=== PATIENT | female | born 1960 | race Caucasian/White ===

== ENCOUNTER 2018-10-21 15:27 | Emergency (ER) | payer BC, SELFPAY ==
--- NOTE | 2018-10-21 15:48 | XR_ITS ---
XR chest 2V HISTORY: Weakness since yesterday morning. HISTORY of asthma. Nonsmoker. ITS.REASON: COUGH ORDERING PHYSICIAN: Sher Gu PATIENT AGE: 58 years Technique: PA and lateral chest COMPARISON: November 2004 CXR. There were 2008 FINDINGS: Compared to previous chest films, there is less less optimal inspiration both the PA and lateral film today. . The diaphragm is down to the anterior sixth rib today. Previously there is hyperexpansion with diaphragm below the anterior seventh rib. Suggestion of bibasilar airspace disease most evident at left lung base. There is additional airspace disease PICC line of markings at medial left lung base and left infrahilar region which in for the most part reflect atelectasis; possible infiltrate associated.. There may be some mild central airway inflammatory changes bilateral lobe lobe are Question subtle infiltrate towards right base, right lower lobe as well Again the less optimal inspiration may contribute this overall appearance and overall bibasilar atelectasis. The franky & mediastinal structures satisfactory. Superior mediastinum unremarkable. Chest wall and T-spine intact. Mild degenerative changes mid T-spine. IMPRESSION:...... Less optimal inspiration crowds markings at bases Suspect mild central airway inflammatory changes particularly at the infrahilar regions bilaterally. . bibasilar airspace disease, most evident towards the left lung base.-Suspect mainly atelectasis but there may be associated infiltrate, particularly suspect at the left lower lobe retrocardiac region. If symptoms progress follow-up suggested. Cardiomegaly with Mild pulmonary vascular engorgement
--- NOTE | 2018-10-21 15:49 | PC.NURSE ---
PT TAKEN TO XRAY IN WHEELCHAIR
[2018-10-21 15:50] VITALS: BP 165/98; PULSE 111; RESP 26; TEMP 38.3; O2SAT 96; BMI 38.6
--- NOTE | 2018-10-21 15:56 | HMH.EDUTC ---
[facility] [place] Impression: Asthma exacerbation Qualifiers: Asthma severity: mild Asthma persistence: intermittent Qualified Code(s): J45.21 - Mild intermittent asthma with (acute) exacerbation Disposition: Home, Self-Care Condition on Discharge: Good Instructions: Sore Throat, Asthma -- Adult, Cough Additional Instructions: Drink plenty of fluids Take tylenol or ibuprofen for pain or fever. Take the antibiotics (cefdinir) and steroids (medrol dose pack) as directed. I prescribed a albuterol inhaler. Keep this around for times when you get sick and have asthma symptoms like you are now. Go to your regular doctor if you are not getting better in 48 hours. GO TO THE ER FOR ANY WORSENING OR LIFE THREATENING SYMPTOMS Prescriptions: Promethazine/Dextromethorphan [Promethazine-Dm Syrup] 5 ml PO Q6HP PRN #240 syrup PRN Reason: Cough Ondansetron [Zofran 4mg ODT] 4 mg PO Q8HP PRN #20 tab.rapdis PRN Reason: Nausea Albuterol Sulfate [Albuterol HFA Inhaler] 1 - 2 puffs IH Q4-6H PRN 30 Days #1 inh PRN Reason: Shortness Of Breath Or Wheezing Cefdinir [Omnicef 300mg Capsule] 300 mg PO BID 10 Days #20 cap methylPREDNISolone [Medrol] 4 mg PO DIRECTED 6 Days #21 tab.ds.pk Referrals: Dereck Short [Primary Care Provider] - Time of Disposition: 18:15 Medical Decision Making - Medical Records Medical records reviewed: No: I reviewed the patient's medical records. - Narciso Inquiry Pt receiving controlled substance: No Narciso was queried for this patient: No Vital Signs: 10/21/18 15:50 10/21/18 16:45 10/21/18 16:55 Temperature 101 F H Temperature Source Oral Pulse Rate 77 79 Pulse Rate [Right Brachial] 111 H Respiratory Rate 26 H Blood Pressure Blood Pressure [Right Arm] 165/98 H Blood Pressure Mean [Right Arm] 120 Blood Pressure Source Blood Pressure Source [Right Arm] Automatic Cuff Blood Pressure Position Blood Pressure Position [Right Arm] Sitting 02 Sat by Pulse Oximetry 96 Oxygen Delivery Method Room Air 10/21/18 17:45 Temperature 99.6 F Temperature Source Oral Pulse Rate 92 H Pulse Rate [Right Brachial] Respiratory Rate 24 Blood Pressure 152/88 H Blood Pressure [Right Arm] Blood Pressure Mean [Right Arm] Blood Pressure Source Automatic Cuff Blood Pressure Source [Right Arm] Blood Pressure Position Sitting Blood Pressure Position [Right Arm] 02 Sat by Pulse Oximetry Oxygen Delivery Method Room Air - Lab Data Lab results reviewed: Yes: I reviewed the patient's lab results. Lab Results 10/21/18 15:49: Influenza Type A Ag Negative, Influenza Type B Ag Negative 10/21/18 17:15: Strep Scn Rapid Clinic Negative Orders (Tests/Meds): ED MEDICATIONS Discontinued Medications Generic Name Dose Route Start Last Admin Trade Name Freq PRN Reason Stop Dose Admin Albuterol/Ipratropium 3 ml 10/21/18 16:35 10/21/18 16:45 Duoneb 3ml Neb IH 10/21/18 16:36 3 ml ONCE ONE Administration Ceftriaxone Sodium 1 gm 10/21/18 16:22 10/21/18 16:33 Rocephin 1gm Vial IM 10/21/18 16:23 1 gm ONCE ONE Administration Protocol Lidocaine HCl 0 ml 10/21/18 16:22 10/21/18 16:33 Lidocaine 1% 10ml Mdv IM 10/21/18 16:23 1 ml ONCE ONE Administration Methylprednisolone Sodium Succinate 125 mg 10/21/18 16:22 10/21/18 16:33 Solu-Medrol 125mg/2ml Vial IM 10/21/18 16:23 125 mg ONCE ONE Administration Ondansetron HCl 4 mg 10/21/18 17:23 10/21/18 17:24 Zofran 4mg Odt SL 10/21/18 17:24 4 mg ONCE ONE Administration ORDERS Category Date Time Status Strep Screen Confirmation Stat Micro 10/21/18 17:15 Received - Radiology Data #1 Image(s): Chest Image Reviewed: Yes I reviewed the patient's radiology image, Yes I reviewed the patient's radiology image w/the ED
--- NOTE | 2018-10-21 16:00 | ED_ITS ---
[facility] – [place] Disposition Clinical Impression: Asthma exacerbation Qualifiers: Asthma severity: mild Asthma persistence: intermittent Qualified Code(s): J45.21 - Mild intermittent asthma with (acute) exacerbation Disposition: Home, Self-Care Condition on Discharge: Good Instructions: Sore Throat, Asthma -- Adult, Cough Additional Instructions: Drink plenty of fluids Take tylenol or ibuprofen for pain or fever. Take the antibiotics (cefdinir) and steroids (medrol dose pack) as directed. I prescribed a albuterol inhaler. Keep this around for times when you get sick and have asthma symptoms like you are now. Go to your regular doctor if you are not getting better in 48 hours. GO TO THE ER FOR ANY WORSENING OR LIFE THREATENING SYMPTOMS Prescriptions: Promethazine/Dextromethorphan [Promethazine-Dm Syrup] 5 ml PO Q6HP PRN #240 syrup PRN Reason: Cough Ondansetron [Zofran 4mg ODT] 4 mg PO Q8HP PRN #20 tab.rapdis PRN Reason: Nausea Albuterol Sulfate [Albuterol HFA Inhaler] 1 - 2 puffs IH Q4-6H PRN 30 Days #1 inh PRN Reason: Shortness Of Breath Or Wheezing Cefdinir [Omnicef 300mg Capsule] 300 mg PO BID 10 Days #20 cap methylPREDNISolone [Medrol] 4 mg PO DIRECTED 6 Days #21 tab.ds.pk Referrals: Dereck Short [Primary Care Provider] - Time of Disposition: 18:15 Medical Decision Making - Medical Records Medical records reviewed: No: I reviewed the patient's medical records. - Narciso Inquiry Pt receiving controlled substance: No Narciso was queried for this patient: No Vital Signs: 10/21/18 15:50 10/21/18 16:45 10/21/18 16:55 Temperature 101 F H Temperature Source Oral Pulse Rate 77 79 Pulse Rate [Right Brachial] 111 H Respiratory Rate 26 H Blood Pressure Blood Pressure [Right Arm] 165/98 H Blood Pressure Mean [Right Arm] 120 Blood Pressure Source Blood Pressure Source [Right Arm] Automatic Cuff Blood Pressure Position Blood Pressure Position [Right Arm] Sitting 02 Sat by Pulse Oximetry 96 Oxygen Delivery Method Room Air 10/21/18 17:45 Temperature 99.6 F Temperature Source Oral Pulse Rate 92 H Pulse Rate [Right Brachial] Respiratory Rate 24 Blood Pressure 152/88 H Blood Pressure [Right Arm] Blood Pressure Mean [Right Arm] Blood Pressure Source Automatic Cuff Blood Pressure Source [Right Arm] Blood Pressure Position Sitting Blood Pressure Position [Right Arm] 02 Sat by Pulse Oximetry Oxygen Delivery Method Room Air - Lab Data Lab results reviewed: Yes: I reviewed the patient's lab results. Lab Results 10/21/18 15:49: Influenza Type A Ag Negative, Influenza Type B Ag Negative 10/21/18 17:15: Strep Scn Rapid Clinic Negative Orders (Tests/Meds): ED MEDICATIONS Discontinued Medications Generic Name Dose Route Start Last Admin Trade Name Freq PRN Reason Stop Dose Admin Albuterol/Ipratropium 3 ml 10/21/18 16:35 10/21/18 16:45 Duoneb 3ml Neb IH 10/21/18 16:36 3 ml ONCE ONE Administration Ceftriaxone Sodium 1 gm 10/21/18 16:22 10/21/18 16:33 Rocep
--- NOTE | 2018-10-21 16:42 | PC.NURSE ---
1642: RT AT BEDSIDE
[2018-10-21 16:45] VITALS: PULSE 77
[2018-10-21 16:55] VITALS: PULSE 79
[2018-10-21 17:15] LABS: UTC Influenza A Antigen Negative (Negative); UTC Influenza B Antigen Negative (Negative)
[2018-10-21 17:16] LABS: UTC Strep Screen (Rapid) Negative (Negative)
[2018-10-21 17:45] VITALS: BP 152/88; PULSE 92; RESP 24; TEMP 37.6; O2SAT 98
== END 2018-10-21 17:46 | disposition home or self-care (01) ==
PROVIDERS: Emergency Provider Nurse Practitioner Family; PCP Family Medicine
DX: J45.21 Mild intermittent asthma with (acute) exacerbation (principal)
CPT/HCPCS: 71046; 87804; 87880; 96372; 99203

== ENCOUNTER → 2020-08-15 08:47 | Outpatient (CLI) | payer BC, SELFPAY ==
[2020-08-15 11:12] LABS: Coronavirus 19 IgG Antibody Negative (Negative); Coronavirus 19 IgM Antibody Negative (Negative)
== END ==
PROVIDERS: Visit Provider Internal Medicine Gastroenterology
DX: Z01.812 Encounter for preprocedural laboratory examination (principal)
CPT/HCPCS: 36415; 86328

== ENCOUNTER 2020-08-17 09:00 | Day surgery (SDC) | payer BC, SELFPAY ==
[2020-08-12 11:53] VITALS: BMI 41.1
[2020-08-17 09:17] VITALS: BP 135/72; PULSE 76; RESP 18; TEMP 36.4; O2SAT 99
[2020-08-17 09:29] VITALS: O2SAT 96
--- NOTE | 2020-08-17 09:39 | HMH.ANESCL ---
[facility] Anesthesia Checklist - Patient Identification Patient Identification: Arm Band, Verbal (Name & ) - Structural Data Admitted From: Home Planned Operative Procedure/s: Colonoscopy Consent for Planned Operative Procedure(s) Verified: Yes Verified Documents: Surgical Consent, History and Physical - NPO Status Verified Time NPO: 00:00 - Chart Verification Results Verified: None - Additional verifications Anesthesia Reactions: No - Airway Assessment C-Spine Mobility Assessed: Yes TMJ Mobility Assessed: Yes Dentition: Good Dentition - Neurological Assessment Level of Consciousness: Awake, Alert, Appropriate, Follows Commands Hx Seizures: No Numbness or tingling in extremities: No - Anesthesia Plan Anesthesia Risk discussed: Yes Anesthesia Plan: Verified ASA Class: III Anesthesia Type: MAC [facility] History I have reviewed the patient's past medical history: Yes Medical History: Reports:: Asthma, Gastroesophageal Reflux Disease(GERD) Denies:: Cancer, Diabetes Mellitus Type 1, Diabetes Mellitus Type 2, Internal Pacemaker, MRSA, Seizures *Have you ever received a pneumonia vaccine?: No *Have you received a flu vaccine this season?: Yes Other Medical History: Reports: Hypothyroidism Comment:: Morbid obesity, RAJAN Anesthesia experience/problems:: None Other Surgeries: Yes: Sinus Surgery (x2, dental ). No: Pacemaker Amputation: No Fractures: No - *Social History Last grade of school completed: Advanced degree Smoking Status: Unknown if ever smoked # Packs/Day (cigarettes): 0 Smoking End Date: 39YEARS AGO Alcohol Intake: never Alcohol Intake Frequency:: holidays/special occasions only Substance Use Type: denies use *Occupational Status:: other Housing: house Household Members: spouse, family *Travel in the last 8 weeks: None Family Hx:: Asthma, Cancer, Diabetes, Thyroid Disorder
--- NOTE | 2020-08-17 09:42 | P.PCN_ITS ---
[facility] Procedure Note Procedure Note:: Colonoscopy Procedure Report: Colonoscopy Endoscopist: Francisco Gomez II, MD Referring physician: Dereck Short MD Date of Procedure: August 17, 2020 Equipment: Olympus 180 variable stiffness pediatric colonoscope Sedation: MAC sedation Indication: Mrs. You is a 60-year-old female with a personal history of colon polyps and a family history of colon cancer. The patient did have her last colonoscopy with [place] in August 2015 and had a single polyp (sigmoid tubular adenoma) which was removed. 5 years prior to this, she did have a colonoscopy with Dr. Dean oWod and had diverticulosis. The patient does state that she had possibly 3 colonoscopies prior to this in her 20s and 30s. She does state that her maternal grandmother had colon cancer in her late 70s and her paternal uncle had colon cancer in his 60s. Her father had precancerous colon polyps. The patient primarily has had chronic constipation but every 2 to 3 months, she will develop symptoms of bowel urgency, bowel frequency and abdominal crampy discomfort. She has had this more frequently in the last 5 years. She does marck e Metamucil usually daily. She gets more constipation when she does not take this routinely. She also reports some rectal pressure. She reports no rectal bleeding or weight loss. Procedure: Prior to the procedure, a history and physical exam was performed, and patient's medications and allergies were reviewed. The risks, benefits and alternatives of the sedation and procedure were discussed with the patient. All questions were answered and informed consent was obtained. The patient was brought to the procedure room. Patient identification and proposed procedure were verified by the physician and the nurse. The patient was placed in a left lateral decubitus position and the scope was passed under direct vision. Throughout the procedure, the patient's blood pressure, pulse, and oxygen saturations were monitored continuously. The colonoscopy was accomplished without difficulty. The patient tolerated the procedure well. Findings: On digital rectal examination there was normal rectal tone. There were no external hemorrhoids. The colonoscope was introduced through the anal canal to the rectum and advanced to the cecum. The ileocecal valve and appendiceal orifice were identified. The scope was advanced a short distance into the ileum which appeared grossly normal. The scope was then withdrawn into the colon. The cecum, ascending, transverse, descending and sigmoid: Were grossly normal. There was a diminutive 4 to 5 mm rectosigmoid colon polyp removed via cold snare polypectomy. This did appear to be hyperplastic in nature. The remainder of the rectum was normal. There were no mucosal abnormalities identified. Upon retroflexion within the rectum there were grade 1 internal hemorrhoids.The preparation was excellent throughout with [place] Preparation Score of 9. The cecal time was 12 minutes. Impression: 1. Diminutive rectosigmoid polyp?rule out hyperplastic polyp 2. Grade 1 internal hemorrhoids Plan: Based upon the patient's family history, I would continue surveillance at a 5- year interval. I do feel that she has intermittent IBS/spastic colon with urgency and diarrhea. I would consider improving the bulk fiber (Konsyl), adding probiotic and/or IBgard. I will follow up the polyp histology and I will discuss everything with the patient and family.
[2020-08-17 10:02] VITALS: BP 123/77; PULSE 75; RESP 12; TEMP 36.6; O2SAT 91
[2020-08-17 10:12] VITALS: BP 131/78; PULSE 73; RESP 16; O2SAT 96
[2020-08-17 10:22] VITALS: BP 120/70; PULSE 68; RESP 16; O2SAT 98
[2020-08-17 10:32] VITALS: BP 154/87; PULSE 64; RESP 16; TEMP 36.6; O2SAT 99
== END 2020-08-17 10:58 | disposition home or self-care (01) ==
LOC: OUTP 09:01
PROVIDERS: PCP Family Medicine; Visit Provider Internal Medicine Gastroenterology
PROC: 0DJD8ZZ Inspection of Lower Intestinal Tract, Via Natural or Artificial Opening Endoscopic (ICD-10-PCS; CPT 45378; principal; 2020-08-17 10:00)
DX: K63.5 Polyp of colon (principal); Z86.010 Personal history of colon polyps; Z80.0 Family history of malignant neoplasm of digestive organs; K64.0 First degree hemorrhoids; J45.909 Unspecified asthma, uncomplicated; K21.9 Gastro-esophageal reflux disease without esophagitis; E03.9 Hypothyroidism, unspecified; G47.33 Obstructive sleep apnea (adult) (pediatric); Z12.11 Encounter for screening for malignant neoplasm of colon
CPT/HCPCS: 45378

== ENCOUNTER 2021-03-31 11:26 | Emergency (ER) | payer BC, SELFPAY ==
[2021-03-31 11:47] VITALS: BP 147/88; PULSE 73; RESP 16; TEMP 36.8; O2SAT 97; BMI 41.1
[2021-03-31 12:12] LABS: Apearance,Urine Clear (Clear); Bilirubin,Urine Negative (Negative); Blood, Urine Trace (Negative); Color,Urine Orange (Yellow); Glucose,Urine (UA) 100 (Negative); Ketones,Urine Negative (Negative); Protein,Urine Negative (Negative); Specific Gravity, Urine 1.015 (1.005-1.030); UTC Leukocyte Esterase,Urine 1+ (Negative); UTC Nitrate,Urine Positive (Negative); Urobilinogen,Urine 1 EU/dl (0.2)
--- NOTE | 2021-03-31 12:14 | HMH.EDUTC ---
[facility] – [place] Disposition Clinical Impression: UTI (urinary tract infection) Qualifiers: Urinary tract infection type: site unspecified Hematuria presence: with hematuria Qualified Code(s): N39.0 - Urinary tract infection, site not specified Disposition: Home, Self-Care Condition on Discharge: Good Instructions: Trimethoprim/Sulfamethoxazole (Alternative Therapy), Urinary Tract Infection, DI for Urinary Tract Infection (UTI), Phenazopyridine Additional Instructions: *Increase fluids. Water not Soda or Tea *Start antibiotic immediately and be sure to take as ordered for the FULL length of time although you should start to see improvement over the next 48 hours *Pyridium as needed Remember this medication will turn your urine Brooks. This is normal but it will stain what ever it gets on *You should not use Pyridium for more than 48 hours. If so , follow up with your primary physician to review urine culture and ensure that antibiotic is adequate for infection *Be SURE to follow up anytime for new or worsening symptoms with your family doctor. AND in 48 hours for urine culture results with your family doctor, if you do not have a doctor then you may call back to the [facility] for urine culture results and further treatment. We do recommend that you choose and establish care with a Primary Care Physician. AND follow up with them in 10-14 days to repeat UA to ensure infection is resolved and blood no longer present *Be sure to let your PCP know that we sent urine cultures from the [facility] so they can follow up to ensure that you area the on the correct antibiotic Call your doctor office and make appointment for 48 hours (2 days from today) to follow up and get the results of your urine culture and further treatment Prescriptions: Sulfamethoxazole/Trimethoprim [Bactrim DS tablet] 1 each PO BID 7 Days #14 tab Transmission Status: Received by [id number] Phenazopyridine HCl [Pyridium 200mg Tablet] 200 pow PO TID #6 tab Transmission Status: Received by [id number] Referrals: Dereck Short [Primary Care Provider] - As needed Time of Disposition: 12:22 Medical Decision Making - Narciso Inquiry Pt receiving controlled substance: No Narciso was queried for this patient: No Vital Signs: 03/31/21 11:47 03/31/21 12:27 Temperature 98.3 F 98 F Temperature Source Oral Pulse Rate 74 Pulse Rate [Left] 73 Respiratory Rate 16 15 Blood Pressure 143/82 H Blood Pressure [Right Arm] 147/88 H Blood Pressure Mean [Right Arm] 107 02 Sat by Pulse Oximetry 97 - Lab Data Lab results reviewed: Yes: I reviewed the patient's lab results. Lab Results 03/31/21 11:33: Urine Color Brooks, Urine Appearance Clear, Urine pH 6.0, Ur Specific Prim 1.015, Urine Protein Negative, Urine Glucose (UA) 100, Urine Ketones Negative, Urine Blood Trace, Urine Nitrate Positive A, Urine Bilirubin Negative, Urine Urobilinogen 1, Ur Leukocyte Esterase 1+ A Orders (Tests/Meds): ORDERS Category Date Time Status Urine Culture Stat Micro 03/31/21 11:46 Received [facility] [place] HPI - General Stated complaint: frequent,burning Time Seen by Provider: 03/31/21 12:14 Mode of Arrival: Ambulatory Source of Information: Patient Limitations: No Limitations Description of Symptoms (Recalled from Triage Doc. by RN): pt c/o minimal R flank pain, urinary frequency/urgency, cramping, blood in urine, nausea and chills. HEENT Symptoms (Recalled from RN notes): No Resp Symptoms (Recalled from RN notes): No Skin Symptoms (Recalled from RN notes): No MS Symptoms (Recalled from RN notes): No Functional Status (Recalled from RN notes): na - History of Present Illness Provider Complaint: Patient states that she has been on amoxicillin for dental abcess State that for the last couple of days she has been having lower back aches, pressure like feeling when she has to urinate and as she is urinating has burning like cramping pain on and off and feeling of urgency and frequency S
[2021-03-31 12:27] VITALS: BP 143/82; PULSE 74; RESP 15; TEMP 36.6
== END 2021-03-31 12:28 | disposition home or self-care (01) ==
PROVIDERS: Emergency Provider Nurse Practitioner; PCP Family Medicine
DX: N30.00 Acute cystitis without hematuria (principal); K21.9 Gastro-esophageal reflux disease without esophagitis; J45.909 Unspecified asthma, uncomplicated
CPT/HCPCS: 81003; 87086; 87088; 87186; 99202; G0463

== ENCOUNTER 2021-05-04 07:50 | Outpatient (CLI) | payer BC, SELFPAY ==
[2021-05-04] VITALS (8 sets, daily range): BP systolic 109–132; BP diastolic 65–78; PULSE 65–77; RESP 16–18; TEMP 36.7–36.8; O2SAT 95–97; BMI 41.1
== END 2021-05-04 10:35 | disposition home or self-care (01) ==
LOC: INF 07:52
PROVIDERS: PCP Family Medicine; Visit Provider Internal Medicine Adolescent Medicine
DX: U07.1 COVID-19 (principal)
CPT/HCPCS: 96365

== ENCOUNTER 2023-10-23 09:36 | Outpatient (CLI) | payer BC, SELFPAY ==
--- NOTE | 2023-10-23 09:41 | XR_ITS ---
FINAL REPORT CLINICAL HISTORY: RT KNEE PAIN COMPARISON: None FINDINGS: AP, lateral and oblique views of the right knee were obtained. There is no prior exam for comparison. There is no acute osseous abnormality of the right knee. The joint space is preserved. The soft tissues are normal. There is no joint effusion. IMPRESSION: No acute osseous abnormality of the right knee. Reviewed, Interpreted and Dictated by Jw Fong MD Transcribed by Rosalia Ashton Authenticated and [facility]
== END 2023-10-23 23:59 ==
LOC: RAD 09:38
PROVIDERS: PCP Internal Medicine Adolescent Medicine; Visit Provider Physician Assistant
DX: M25.561 Pain in right knee (principal)
CPT/HCPCS: 73562

== ENCOUNTER 2023-12-22 15:53 | Outpatient (CLI) | payer BC, SELFPAY | END 2023-12-22 23:59 | disposition home or self-care (01) | LOC: RT 15:55 | PROVIDERS: PCP Internal Medicine Adolescent Medicine; Visit Provider Physician Assistant | DX: R00.2 Palpitations (principal) | CPT/HCPCS: 93225; 93226 ==

== ENCOUNTER 2024-02-21 09:20 | Outpatient (CLI) | payer BC, SELFPAY ==
--- NOTE | 2024-02-21 09:37 | XR_ITS ---
FINAL REPORT TECHNIQUE: Bone densitometry calculations of the lumbar spine and left hip were obtained. CLINICAL HISTORY: POST MENOPAUSAL COMPARISON: None FINDINGS: Using L1-4, the bone mineral density of the spine is 1.040 g/cm2, corresponding to T-score of -0.1. Using the left hip, the bone mineral density of the femoral neck is 0.732 g/cm2, corresponding to a T-score of -1.1. Using the right hip, the bone mineral density of the femoral neck is 0.772 g/cm?, corresponding to a T-score of -0.7. NOTE: T-score: Standard deviation compared with peak bone mass of young adult mean. *Following the recommendations of the International Society of Bone densitometry, classification of hip BMD is based on the lower of two T-scores; total hip or femoral neck. IMPRESSION: Normal bone mineral density of the lumbar spine and right hip. Mildly diminished bone mineral density of the left hip, consistent with minimal osteopenia. Reviewed, Interpreted and Dictated by Sergei Dominguez MD Transcribed by Rosalia Ashton Authenticated and [facility]
== END 2024-02-21 23:59 | disposition home or self-care (01) ==
LOC: RAD 09:20
PROVIDERS: PCP Internal Medicine Adolescent Medicine; Visit Provider Physician Assistant
DX: E83.52 Hypercalcemia (principal); Z78.0 Asymptomatic menopausal state
CPT/HCPCS: 77080

== ENCOUNTER 2024-03-21 15:32 | Emergency (ER) | payer BC, SELFPAY ==
[2024-03-21 15:40] VITALS: BP 142/83; PULSE 77; RESP 19; TEMP 36.6; O2SAT 97; BMI 41.4
[2024-03-21 15:59] LABS: Apearance,Urine Clear (Clear); Color,Urine Yellow (Yellow); PH,Urine 5.5 (5.0-8.5)
[2024-03-21 16:00] LABS: Bilirubin,Urine Negative (Negative); Blood, Urine Negative (Negative); Glucose,Urine (UA) Negative (Negative); Ketones,Urine Negative (Negative); Protein,Urine Negative (Negative); UTC Leukocyte Esterase,Urine Negative (Negative); UTC Nitrate,Urine Negative (Negative); Urobilinogen,Urine 0.2 EU/dl (0.2)
--- NOTE | 2024-03-21 16:03 | EXP.UTC ---
Discharge Plan Disposition Patient Disposition: Home, Self-Care Condition: Good Prescriptions Prescriptions: New phenazopyridine [Pyridium] 200 mg tablet 200 mg PO Q8H 2 Days Qty: 6 0RF cephalexin 500 mg capsule 500 mg PO QID 7 Days Qty: 28 0RF No Action omeprazole 10 MG capsule,delayed release(DR/EC) 10 mg PO DAILY calcium-vitamin D3-vitamin K 1 EACH tablet,chewable 1 each PO DAILY ascorbic acid (vitamin C) 1,000 MG tablet 1,000 mg PO DAILY omega 8-ouv-spt-fish oil 1 EACH capsule 1 each PO DAILY ys-vcg-wjnog acid-lutein 1 EACH tablet,chewable 1 each PO DAILY psyllium husk 660 GM powder 1 tbsp PO DAILY fexofenadine [Jacqui] 180 mg Tablet 180 mg PO DAILY Referrals Follow up/Referrals: Suresh Simmons MD [Primary Care Provider] - See instructions Activity Restrictions/Add. Instructions Additional Instructions/Restrictions: Drink plenty of fluids. Take tylenol or ibuprofen for pain or fever. Take the medications as directed. Follow up with your regular doctor. GO TO THE ER FOR ANY WORSENING SYMPTOMS The pyridium will make your urine turn orange, this is an expected side effect. It will stain your clothes if it comes into contact with them. We will culture the urine. That will tell what bacteria is causing your infection and which antibiotics will treat it best. Sometimes the first antibiotic we prescribe turns out to not work against different bacteria. So, make sure you follow up within 3 days if you are not getting better. Clinical Impressions Clinical Impression: UTI (urinary tract infection) Qualifiers: Urinary tract infection type: site unspecified Hematuria presence: with hematuria Qualified Code(s): N39.0 - Urinary tract infection, site not specified Instructions Patient Instructions: Urine Culture, DI for Urinary Tract Infection (UTI), Phenazopyridine Discharge ED Provider: Sher Gu [facility] General Stated complaint: painful urination poss UTI Mode of Arrival: Ambulatory Source of Information: Patient Limitations: No Limitations Time Seen by Provider: 03/21/24 15:56 Description of Symptoms (Recalled from Triage Doc. by RN): PATIENT C/O URINARY FREQUENCY/URGENCY, LOWER ABDOMINAL PAIN, NAUSEA, AND FEELING BAD THAT STARTED 2 WEEKS AGO HEENT Symptoms (Recalled from RN notes): No Resp Symptoms (Recalled from RN notes): No Skin Symptoms (Recalled from RN notes): No MS Symptoms (Recalled from RN notes): No Functional Status (Recalled from RN notes): WNL Related Data Home Medications Medication Instructions Recorded Confirmed ascorbic acid (vitamin C) 1,000 mg 1,000 mg PO DAILY Supplement 08/12/20 03/21/24 tablet calcium 650 mg-vitamin D3 12.5 1 each PO DAILY Supplement 08/12/20 03/21/24 mcg-vitamin K 40 mcg chewable tablet multivit with min-folic 1 each PO DAILY Supplement 08/12/20 03/21/24 acid-lutein 200 mcg-137.5 mcg chewable tablet omega 1-tyn-pdv-fish oil 500 mg 1 each PO DAILY Supplement 08/12/20 03/21/24 (200mg-300mg)-1,000 mg capsule omeprazole 10 mg capsule,delayed 10 mg PO DAILY Reflux/Acid reflux 08/12/20 03/21/24 release psyllium husk 3.4 gram/5.4 gram 1 tbsp PO DAILY BOWELS 08/12/20 03/21/24 oral powder fexofenadine 180 mg tablet 180 mg PO DAILY 03/21/24 03/21/24 Previous Rx's Medication Instructions Recorded cephalexin 500 mg capsule 500 mg PO QID 7 days #28 caps 03/21/24 phenazopyridine 200 mg tablet 200 mg PO Q8H 2 days #6 tabs 03/21/24 (Pyridium) Allergies Allergy/AdvReac Type Severity Reaction Status Date / Time levofloxacin Allergy Unknown Verified 01/18/24 15:18 Quinolones Allergy Unknown Verified 01/18/24 15:18 Worker's Comp Is this a Worker's Comp case?: No [facility] Disclaimer: The information contained in this section may have been updated after the patient was seen, as this information can be updated by other users. Social History Smoking Status: Former smoker second hand exposure: No alcohol intake: current alcohol intake frequency: holidays/special occasions only substance use type: denies use current occupational status: employed Travel in the last 8 weeks: None household members: spouse and family housing: house current occupation: [employer] current occupational exposures/hazards: No caffeine: Yes ROS Obtained: Yes All systems reviewed & no additional complaints except as documented Constitutional Constitutional: Reports system reviewed and no additional complaints, except as documented, Denies chills and Denies fever(s) Eyes Eyes: Denies eye discharge ENT Ears, Nose, Mouth, and Throat: Denies dysphagia, Denies sore throat and Denies throat swelling Cardiovascular Cardiovascular: Denies chest pain and Denies dyspnea Respiratory Respiratory: Denies chest congestion, Denies cough and Denies dyspnea Gastrointestinal Gastrointestingal: Denies abdominal pain, constipation, diarrhea, dysphagia, nausea or vomiting Genitourinary Female Genitourinary: Reports as per HPI, Reports dysuria, Reports urinary frequency, Denies urinary incontinence, Reports urinary hesitancy and Reports urinary urgency Musculoskeletal Musculoskeletal: Denies arthralgias and Reports back pain Integumentary/Breasts Skin/Breast: Denies rash Neurologic Neurologic: Denies paresthesias Allergic/Immunologic Allergic/Immunologic: Denies throat swelling Physical Exam General General appearance: alert and in no apparent distress Head Head exam: atraumatic and normocephalic Eye Eye exam: Present normal appearance, PERRL and EOMI ENT ENT exam: Present normal exam, mucous membranes moist, TM's normal bilaterally and normal external ear exam Neck Neck exam: Present normal inspection, full ROM and trachea midline; Absent tenderness, meningismus or lymphadenopathy Chest Chest inspection: Present normal inspection and symmetric chest wall rise; Absent tenderness Respiratory Respiratory exam: Present normal lung sounds bilaterally; Absent respiratory distress, wheezes or stridor Cardiovascular Cardiovascular exam: Present regular rate, normal rhythm and normal heart sounds Abdominal Exam Abdominal exam: Present soft and normal bowel sounds; Absent distention, tenderness, guarding, rebound, rigidity, incision, psoas sign, obturator sign, heel tap sign, Sumner's sign, Rovsing's sign or tenderness at McBurney's Point Extremities Exam Extremities exam: Present normal inspection, full ROM and normal capillary refill; Absent tenderness, edema, joint swelling, calf tenderness or cyanosis Back Exam Back exam: Present normal inspection and full ROM; Absent tenderness, CVA tenderness (R) or CVA tenderness (L) Neurological Exam Neurological exam: Present alert, oriented X3 and normal gait Psychiatric Psychiatric exam: Present normal affect and normal mood Skin Skin exam: Present warm, dry, intact and normal color Lymphatic Lymphatic Findings: no adenopathy Medical Decision Making Medical Records Medical records reviewed: No I reviewed the patient's medical records. Narciso Inquiry Pt receiving controlled substance: No Vital Signs: 03/21/24 15:40 Temperature 97.8 F Temperature Source Oral Pulse Rate [Left Brachial] 77 Respiratory Rate 19 Blood Pressure [Left Arm] 142/83 H Blood Pressure Mean [Left Arm] 102 Blood Pressure Source [Left Arm] Automatic Cuff Blood Pressure Position [Left Arm] Sitting 02 Sat by Pulse Oximetry 97 Oxygen Delivery Method Room Air Lab Data Lab results reviewed: Yes I reviewed the patient's lab results. Lab Results 03/21/24 15:52: Urine Color Yellow, Urine Appearance Clear, Urine pH 5.5, Ur Specific Driscoll 1.020, Urine Protein Negative, Urine Glucose (UA) Negative, Urine Ketones Negative, Urine Blood Negative, Urine Nitrate Negative, Urine Bilirubin Negative, Urine Urobilinogen 0.2, Ur Leukocyte Esterase Negative Orders (Tests/Meds): ORDERS Category Date Time Status Urine Culture Stat Micro 03/21/24 15:42 Received
[2024-03-21 16:18] VITALS: BP 142/83; PULSE 77; RESP 19; TEMP 36.6; O2SAT 97
== END 2024-03-21 16:20 | disposition home or self-care (01) ==
PROVIDERS: Emergency Provider Nurse Practitioner Family; PCP Internal Medicine Adolescent Medicine
DX: N39.0 Urinary tract infection, site not specified (principal); R31.9 Hematuria, unspecified; R10.30 Lower abdominal pain, unspecified; R30.0 Dysuria; R11.0 Nausea
CPT/HCPCS: 81003; 87086; 99212; 99214; G0463

== ENCOUNTER 2024-04-07 15:27 | Emergency (ER) | payer BC, SELFPAY ==
[2024-04-07 15:45] VITALS: BP 136/79; PULSE 70; RESP 19; TEMP 36.6; O2SAT 97; BMI 41.9
--- NOTE | 2024-04-07 16:17 | ED_ITS ---
Discharge Plan Disposition Patient Disposition: Home, Self-Care Condition: Good Prescriptions Prescriptions: New fluconazole 150 mg tablet 150 mg PO Q3D Qty: 2 0RF Rx Instructions: one tablet now and may repeat in 3 days if still having symptoms azithromycin [Zithromax Z-Hermes] 250 mg tablet See Rx Instructions .ROUTE .COMPLEX 5 Days Qty: 6 0RF Rx Instructions: For 250 mg dose pack: take 500 mg today (day 1), then 250 mg for 4 days (days 2-5) methylprednisolone [Medrol (Hermes)] 4 mg tablets,dose pack See Rx Instructions .Route .COMPLEX 6 Days Qty: 21 0RF Rx Instructions: taper pack; No Action omeprazole 10 MG capsule,delayed release(DR/EC) 10 mg PO DAILY calcium-vitamin D3-vitamin K 1 EACH tablet,chewable 1 each PO DAILY ascorbic acid (vitamin C) 1,000 MG tablet 1,000 mg PO DAILY omega 1-thz-yqp-fish oil 1 EACH capsule 1 each PO DAILY kk-ymz-jwopg acid-lutein 1 EACH tablet,chewable 1 each PO DAILY psyllium husk 660 GM powder 1 tbsp PO DAILY fexofenadine [Jacqui] 180 mg Tablet 180 mg PO DAILY Referrals Follow up/Referrals: Suresh Simmons MD [Primary Care Provider] - See instructions Activity Restrictions/Add. Instructions Additional Instructions/Restrictions: Take medication as prescribed Follow up with your Family Doctor if needed Straight to ER if any life threatening symptoms Return if needed Clinical Impressions Clinical Impression: Sinusitis Qualifiers: Sinusitis location: unspecified location Chronicity: unspecified Qualified Code(s): J32.9 - Chronic sinusitis, unspecified Instructions Patient Instructions: Sinusitis, DI for Sinusitis Print Language Print Language: Maori Discharge ED Provider: Kierra Mendoza [facility] HPI General Stated complaint: congestion Mode of Arrival: Ambulatory Source of Information: Patient Limitations: No Limitations Time Seen by Provider: 04/07/24 16:19 Description of Symptoms (Recalled from Triage Doc. by RN): PATIENT C/O SINUS CONGESTION AND DRAINAGE FOR APPROX 1 WEEK HEENT Symptoms (Recalled from RN notes): Yes Resp Symptoms (Recalled from RN notes): No Skin Symptoms (Recalled from RN notes): No MS Symptoms (Recalled from RN notes): No Functional Status (Recalled from RN notes): WNL History of Present Illness Provider Complaint: Patient states that she recently got off medication for UTI States that she has been having sinus pain and pressure, drainage in the back of her throat and feels like she may have a yeast infection States today her sinus pain and pressure was worse so she came in Related Data Home Medications ?Medication ?Instructions ?Recorded ?Confirmed ascorbic acid (vitamin C) 1,000 mg 1,000 mg PO DAILY Supplement 08/12/20 04/07/24 tablet calcium 650 mg-vitamin D3 12.5 1 each PO DAILY Supplement 08/12/20 04/07/24 mcg-vitamin K 40 mcg chewable tablet multivit with min-folic 1 each PO DAILY Supplement 08/12/20 04/07/24 acid-lutein 200 mcg-137.5 mcg chewable tablet omega 1-kiz-gvi-fish oil 500 mg 1 each PO DAILY Supplement 08/12/20 04/07/24 (200mg-300mg)-1,000 mg capsule omeprazole 10 mg capsule,delayed 10 mg PO DAILY Reflux/Acid reflux 08/12/20 04/07/24 release psyllium husk 3.4 gram/5.4 gram 1 tbsp PO DAILY BOWELS 08/12/20 04/07/24 oral powder fexofenadine 180 mg tablet 180 mg PO DAILY 03/21/24 04/07/24 Previous Rx's ?Medication ?Instructions ?Recorded azithromycin 250 mg tablet See Rx Instructions PO .COMPLEX 5 04/07/24 (Zithromax Z-Hermes) days #6 tabs fluconazole 150 mg tablet 150 mg PO Q3D 2 doses #2 tabs 04/07/24 methylprednisolone 4 mg tablets in See Rx Instructions .Route 04/07/24 a dose pack (Medrol (Hermes)) .COMPLEX 6 days #21 tabs Allergies Allergy/AdvReac Type Severity Reaction Status Date / Time levofloxacin Allergy Unknown Verified 01/18/24 15:18 Quinolones Allergy Unknown Verified 01/18/24 15:18 Worker's Comp Is this a Worker's Comp case?: No [facility] Disclaimer: The information contained in this section may have been updated after the patient was seen, as this information can be updated by other users. Medical History (Updated 04/07/24 @ 16:28 by Kierra Mendoza APRN) Thyroid disease Urinary tract infection Migraine Asthma Hyperlipidemia Surgical History (Updated 04/07/24 @ 15:52 by Rachel Buenrostro RN) History of tympanostomy tube placement History of sinus surgery Social History Smoking Status: Former smoker second hand exposure: No alcohol intake: current alcohol intake frequency: holidays/special occasions only substance use type: denies use current occupational status: employed Travel in the last 8 weeks: None household members: spouse and family housing: house current occupation: [employer] current occupational exposures/hazards: No caffeine: Yes ROS Obtained: Yes All systems reviewed & no additional complaints except as documented and Yes Systems reviewed as appropriate & no additional complaints except as documented Constitutional Constitutional: Reports system reviewed and no additional complaints, except as documented and Reports as per HPI ENT Ears, Nose, Mouth, and Throat: Reports system reviewed and no additional complaints, except as documented, Reports as per HPI, Reports sinus pain and Reports sinus pressure Cardiovascular Cardiovascular: Reports system reviewed and no additional complaints, except as documented and Reports as per HPI Respiratory Respiratory: Reports system reviewed and no additional complaints, except as documented and Reports as per HPI Gastrointestinal Gastrointestingal: Reports system reviewed and no additional complaints, except as documented and as per HPI Genitourinary Female Genitourinary: Reports system reviewed and no additional complaints, except as documented, Reports as per HPI and Reports vaginal pruritus (with mild burning ) Physical Exam General General appearance: alert and in no apparent distress ENT ENT exam: Present mucous membranes moist Expanded ENT Exam Nose exam: Present sinus tenderness Throat exam: Present other (Pharyngeal erythema noted with PND) Respiratory Respiratory exam: Present normal lung sounds bilaterally; Absent respiratory distress, wheezes or stridor Cardiovascular Cardiovascular exam: Present regular rate, normal rhythm and normal heart sounds Abdominal Exam Abdominal exam: Present soft and normal bowel sounds; Absent distention or tenderness Neurological Exam Neurological exam: Present alert, oriented X3 and normal gait Medical Decision Making Narciso Inquiry Pt receiving controlled substance: No Narciso was queried for this patient: No Vital Signs: 04/07/24 15:45 Temperature 97.9 F Temperature Source Oral Pulse Rate [Left Brachial] 70 Respiratory Rate 19 Blood Pressure [Left Arm] 136/79 Blood Pressure Mean [Left Arm] 98 Blood Pressure Source [Left Arm] Automatic Cuff Blood Pressure Position [Left Arm] Sitting 02 Sat by Pulse Oximetry 97 Oxygen Delivery Method Room Air Medical Decision Narrative: medication discussed with pharmacy
[2024-04-07] MEDS: METHYLPREDNISOLONE SOD SUCC 125MG VIAL 125 MG IM (16:25)
[2024-04-07 16:29] VITALS: BP 136/79; PULSE 70; RESP 19; TEMP 36.6; O2SAT 97
== END 2024-04-07 16:39 | disposition home or self-care (01) ==
PROVIDERS: Emergency Provider Nurse Practitioner; PCP Internal Medicine Adolescent Medicine
DX: J01.90 Acute sinusitis, unspecified (principal); R09.82 Postnasal drip; B37.31 Acute candidiasis of vulva and vagina
CPT/HCPCS: 96372; 99212; 99214; G0463; J2919

== ENCOUNTER 2024-04-18 13:55 | Outpatient (CLI) | payer BC, SELFPAY ==
--- NOTE | 2024-04-18 13:57 | XR_ITS ---
FINAL REPORT CLINICAL HISTORY: lt knee pain fell April 01 swelling, pain COMPARISON: None FINDINGS: Three views of the left knee reveal no evidence of fracture or dislocation. The bony alignment is normal. Mild degenerative changes are present. There is no evidence of joint effusion. No localized soft tissue abnormality is seen. IMPRESSION: Mild degenerative change without acute bony abnormality. Reviewed, Interpreted and Dictated by Jez Huitron III, MD Transcribed by Rosalia Ashton Authenticated and [facility]
== END 2024-04-18 23:59 | disposition home or self-care (01) ==
LOC: RAD 13:55
PROVIDERS: PCP Internal Medicine Adolescent Medicine; Visit Provider Orthopaedic Surgery
DX: M25.562 Pain in left knee (principal)
CPT/HCPCS: 73562

== ENCOUNTER 2024-08-18 09:07 | Emergency (ER) | payer BC, SELFPAY ==
--- NOTE | 2024-08-18 09:57 | EXP.UTC ---
Discharge Plan Disposition Patient Disposition: Home, Self-Care Condition: Good Prescriptions Prescriptions: New benzonatate 100 mg capsule 100 mg PO TIDP PRN (Reason: Cough) Qty: 30 0RF methylprednisolone 4 mg Tablets,Dose Pack 4 mg PO DIRECTED 6 Days Qty: 21 0RF Rx Instructions: Take 1 pack as directed for 6 days albuterol sulfate [Ventolin HFA] 90 mcg/actuation HFA aerosol inhaler 2 puff inhalation Q6H PRN (Reason: shortness of breath or wheezing) Qty: 6.7 0RF amoxicillin-pot clavulanate 875-125 mg Tablet 1 tab PO Q12H Qty: 20 0RF No Action omeprazole 10 MG capsule,delayed release(DR/EC) 10 mg PO DAILY calcium-vitamin D3-vitamin K 1 EACH tablet,chewable 1 each PO DAILY ascorbic acid (vitamin C) 1,000 MG tablet 1,000 mg PO DAILY omega 6-omc-ukd-fish oil 1 EACH capsule 1 each PO DAILY ventutom-hlv-galey acid-lutein 1 EACH tablet,chewable 1 each PO DAILY psyllium husk 660 GM powder 1 tbsp PO DAILY fexofenadine [Jacqui] 180 mg Tablet 180 mg PO DAILY fluconazole 150 mg tablet 150 mg PO Q3D Qty: 2 0RF Rx Instructions: one tablet now and may repeat in 3 days if still having symptoms azithromycin [Zithromax Z-Hermes] 250 mg tablet See Rx Instructions .ROUTE .COMPLEX 5 Days Qty: 6 0RF Rx Instructions: For 250 mg dose pack: take 500 mg today (day 1), then 250 mg for 4 days (days 2-5) methylprednisolone [Medrol (Hermes)] 4 mg tablets,dose pack See Rx Instructions .Route .COMPLEX 6 Days Qty: 21 0RF Rx Instructions: taper pack; Referrals Follow up/Referrals: Suresh Simmons MD [Primary Care Provider] - See instructions Activity Restrictions/Add. Instructions Additional Instructions/Restrictions: Drink plenty of fluids. Take tylenol or ibuprofen for pain or fever. Take the medications as directed. Follow up with your regular doctor. GO TO THE ER FOR ANY WORSENING SYMPTOMS Don't start the oral steroids (medrol dose pack) until tomorrow since you had the shot here Clinical Impressions Clinical Impression: Asthma exacerbation Qualifiers: Asthma severity: mild Asthma persistence: intermittent Qualified Code(s): J45.21 - Mild intermittent asthma with (acute) exacerbation Instructions Patient Instructions: Asthma -- Adult, DI for Asthma -- Adult Print Language Print Language: Wallisian Discharge ED Provider: Sher Gu [facility] [place] HPI General Stated complaint: chest congestion, SOA Time Seen by Provider: 08/18/24 09:57 Related Data Home Medications ?Medication ?Instructions ?Recorded ?Confirmed ascorbic acid (vitamin C) 1,000 mg 1,000 mg PO DAILY Supplement 08/12/20 04/18/24 tablet calcium 650 mg-vitamin D3 12.5 1 each PO DAILY Supplement 08/12/20 04/18/24 mcg-vitamin K 40 mcg chewable tablet ehfsfpsxmktp-vfaw-cxjoe acid 200 1 each PO DAILY Supplement 08/12/20 04/18/24 mcg-lutein 137.5 mcg chewable tablet omega 4-yji-ayt-fish oil 500 mg 1 each PO DAILY Supplement 08/12/20 04/18/24 (200mg-300mg)-1,000 mg capsule omeprazole 10 mg capsule,delayed 10 mg PO DAILY Reflux/Acid reflux 08/12/20 04/18/24 release psyllium husk 3.4 gram/5.4 gram 1 tbsp PO DAILY BOWELS 08/12/20 04/18/24 oral powder fexofenadine 180 mg tablet 180 mg PO DAILY 03/21/24 04/18/24 Previous Rx's ?Medication ?Instructions ?Recorded azithromycin 250 mg tablet See Rx Instructions PO .COMPLEX 5 04/07/24 (Zithromax Z-Hermes) days #6 tabs fluconazole 150 mg tablet 150 mg PO Q3D 2 doses #2 tabs 04/07/24 methylprednisolone 4 mg tablets in See Rx Instructions .Route 04/07/24 a dose pack (Medrol (Hermes)) .COMPLEX 6 days #21 tabs albuterol sulfate 90 mcg/actuation 2 puff inhalation Q6H PRN 08/18/24 aerosol inhaler (Ventolin HFA) shortness of breath or wheezing #6.7 grams amoxicillin 875 mg-potassium 1 tab PO Q12H #20 tabs 08/18/24 clavulanate 125 mg tablet benzonatate 100 mg capsule 100 mg PO TIDP PRN Cough #30 caps 08/18/24 methylprednisolone 4 mg tablets in 4 mg PO DIRECTED 6 days #21 tabs 08/18/24 a dose pack Allergies Allergy/AdvReac Type Severity Reaction Status Date / Time levofloxacin Allergy Unknown Verified 04/18/24 14:17 Quinolones Allergy Unknown Verified 04/18/24 14:17 [facility] Disclaimer: The information contained in this section may have been updated after the patient was seen, as this information can be updated by other users. Medical History Thyroid disease Urinary tract infection Migraine Asthma Hyperlipidemia Surgical History History of tympanostomy tube placement History of sinus surgery Social History Smoking Status: Former smoker second hand exposure: No alcohol intake: current alcohol intake frequency: holidays/special occasions only substance use type: denies use current occupational status: employed Travel in the last 8 weeks: None household members: spouse and family housing: house current occupation: [employer] current occupational exposures/hazards: No caffeine: Yes Have you lived/traveled outside [place] in past 30 days?: No Contact w/someone who lives/traveled outside US past 30 days?: No Exposure to someone with infectious disease in past 14 days?: No Do you have a fever (greater than 100.4 F or 38 C)?: No Have you tested positive for COVID-19: No Exposed to someone with COVID-19 in past 14 days?: No Do you have a sore throat?: No Do you have a cough?: No Do you have any weakness?: No Do you have any diarrhea?: No Are you experiencing any unusual bleeding?: No Do you have any muscle aches/pain?: No Do you have any abdominal pain?: No Are you experiencing loss of taste or smell?: No ROS Obtained: Yes All systems reviewed & no additional complaints except as documented Constitutional Constitutional: Reports chills and Reports fever(s) Eyes Eyes: Denies eye discharge ENT Ears, Nose, Mouth, and Throat: Reports as per HPI Cardiovascular Cardiovascular: Denies chest pain Respiratory Respiratory: Denies chest congestion and Reports cough Gastrointestinal Gastrointestingal: Reports nausea; Denies abdominal pain, constipation, cramping, diarrhea or vomiting Musculoskeletal Musculoskeletal: Denies arthralgias Integumentary/Breasts Skin/Breast: Denies rash Neurologic Neurologic: Denies paresthesias Physical Exam General General appearance: alert and in no apparent distress Head Head exam: atraumatic, normocephalic and normal inspection Eye Eye exam: Present normal appearance, PERRL and EOMI ENT ENT exam: Present normal exam, normal oropharynx, mucous membranes moist, TM's normal bilaterally and normal external ear exam Neck Neck exam: Present normal inspection, full ROM and trachea midline; Absent meningismus or lymphadenopathy Chest Chest inspection: Present normal inspection and symmetric chest wall rise; Absent tenderness Respiratory Respiratory exam: Present normal lung sounds bilaterally; Absent respiratory distress Cardiovascular Cardiovascular exam: Present regular rate and normal rhythm; Absent JVD Abdominal Exam Abdominal exam: Present soft and normal bowel sounds; Absent distention, tenderness or guarding Extremities Exam Extremities exam: Present normal inspection, full ROM and normal capillary refill; Absent calf tenderness Back Exam Back exam: Present normal inspection; Absent tenderness Neurological Exam Neurological exam: Present alert and oriented X3 Psychiatric Psychiatric exam: Present normal affect and normal mood Skin Skin exam: Present warm, dry, intact and normal color Lymphatic Lymphatic Findings: no adenopathy Medical Decision Making Medical Records Medical records reviewed: No I reviewed the patient's medical records. Screening: Per USPSTF and CDC recommendations, given the prevalence of disease in our region, it is our hospital?s policy to screen for HIV and viral Hepatitis for all patients aged 18 and over and those with ongoing risk factors. Narciso Inquiry Pt receiving controlled substance: No
[2024-08-18 10:03] VITALS: BP 133/82; PULSE 77; RESP 20; TEMP 36.8; O2SAT 96; BMI 44.2
[2024-08-18] MEDS: DEXAMETHASONE 4MG/ML 1ML VIAL 8 MG IM (10:21)
[2024-08-18] MEDS: IPRATROPIUM/ALBUTEROL 3 ML NEB IH (10:26)
[2024-08-18 10:47] VITALS: BP 133/82; PULSE 77; RESP 20; TEMP 36.8
== END 2024-08-18 10:53 | disposition home or self-care (01) ==
PROVIDERS: Emergency Provider Nurse Practitioner Family; PCP Internal Medicine Adolescent Medicine
DX: J45.21 Mild intermittent asthma with (acute) exacerbation (principal); R05.9 Cough, unspecified; R50.9 Fever, unspecified; R11.0 Nausea
CPT/HCPCS: 99212; G0381; J1100; J7620

== ENCOUNTER 2024-09-02 11:18 | Emergency (ER) | payer BC, SELFPAY ==
[2024-09-02 11:55] VITALS: BP 149/99; PULSE 85; RESP 19; TEMP 36.8; O2SAT 95; BMI 44.6
--- NOTE | 2024-09-02 12:36 | ED_ITS ---
Discharge Plan Disposition Patient Disposition: Home, Self-Care Condition: Good Prescriptions Prescriptions: New guaifenesin [Mucinex] 1,200 mg tablet extended release 12hr 1,200 mg PO Q12H PRN (Reason: congestion) Qty: 20 0RF fluticasone propionate [Flonase Allergy Relief] 50 mcg/actuation spray,suspension 2 spray intranasal DAILY Qty: 16 0RF Rx Instructions: administer into each nostril daily doxycycline hyclate 100 mg capsule 100 mg PO BID Qty: 20 0RF No Action omeprazole 10 MG capsule,delayed release(DR/EC) 10 mg PO DAILY calcium-vitamin D3-vitamin K 1 EACH tablet,chewable 1 each PO DAILY ascorbic acid (vitamin C) 1,000 MG tablet 1,000 mg PO DAILY omega 5-tol-aex-fish oil 1 EACH capsule 1 each PO DAILY mhdyjyjb-bxq-ovyvi acid-lutein 1 EACH tablet,chewable 1 each PO DAILY psyllium husk 660 GM powder 1 tbsp PO DAILY fexofenadine [Jacqui] 180 mg Tablet 180 mg PO DAILY fluconazole 150 mg tablet 150 mg PO Q3D Qty: 2 0RF Rx Instructions: one tablet now and may repeat in 3 days if still having symptoms azithromycin [Zithromax Z-Hermes] 250 mg tablet See Rx Instructions .ROUTE .COMPLEX 5 Days Qty: 6 0RF Rx Instructions: For 250 mg dose pack: take 500 mg today (day 1), then 250 mg for 4 days (days 2-5) methylprednisolone [Medrol (Hermes)] 4 mg tablets,dose pack See Rx Instructions .Route .COMPLEX 6 Days Qty: 21 0RF Rx Instructions: taper pack; benzonatate 100 mg capsule 100 mg PO TIDP PRN (Reason: Cough) Qty: 30 0RF methylprednisolone 4 mg Tablets,Dose Pack 4 mg PO DIRECTED 6 Days Qty: 21 0RF Rx Instructions: Take 1 pack as directed for 6 days albuterol sulfate [Ventolin HFA] 90 mcg/actuation HFA aerosol inhaler 2 puff inhalation Q6H PRN (Reason: shortness of breath or wheezing) Qty: 6.7 0RF amoxicillin-pot clavulanate 875-125 mg Tablet 1 tab PO Q12H Qty: 20 0RF Referrals Follow up/Referrals: Suresh Simmons MD [Primary Care Provider] - See instructions Activity Restrictions/Add. Instructions Additional Instructions/Restrictions: * Start antibiotic today. Be sure to complete entire prescription even if feeling better * Monitor temp. Tylenol every 4 hours as needed and / or ibuprofen every 6 hours as needed ( As long as your primary care physician has told you that it ok to take both. For fever/aches/pains ER if no less than 101 despite Tylenol or Motrin * Humidifier/vaporizer or hot steamy shower * Inhaler every 4-6 hours as needed like we discussed. If unsure how to use it, ask pharmacist to demonstrate how. Should help open airways and improve cough, wheezing, and shortness of breath * Mucinex during the day for your cough and cough suppressant only at night. Be sure to drink lots of water. Insurance may not cover a prescriptions for mucinex. Might be cheaper to get 400mg tablets and take 2 tablet in the morning, mid-day and evening with lots of water. *Tessalon Perles will not cause drowsiness but use at bedtime to help stop cough so that you may get some rest. Follow up IMMEDIATELY for new or worsening of symptoms OR no noticeable improvement over the next 48-72 hours. 911 immediately for any life threatening symptoms such as chest pain or difficulty breathing Clinical Impressions Clinical Impression: Sinusitis, Bronchitis Instructions Patient Instructions: DI for Sinusitis, Acute Bronchitis Print Language Print Language: Estonian Discharge ED Provider: Kierra Mendoza [facility] [place] HPI General Stated complaint: congestion, Pain in ears, SOA Mode of Arrival: Ambulatory Source of Information: Patient Limitations: No Limitations Time Seen by Provider: 09/02/24 12:36 Description of Symptoms (Recalled from Triage Doc. by RN): PATIENT C/O CHEST AND HEAD CONGESTION, SOA, AND EARS FULL HEENT Symptoms (Recalled from RN notes): Yes Resp Symptoms (Recalled from RN notes): Yes Skin Symptoms (Recalled from RN notes): No MS Symptoms (Recalled from RN notes): No Functional Status (Recalled from RN notes): WNL History of Present Illness Provider Complaint: Patient states that she has been sick on and off for over a month States that she has been having sinus congestion/pressure, cough, chest congestion, scratchy throat and feeling of fullness in her ears States today she was still not feeling any better so she came in to get checked Related Data Home Medications ?Medication ?Instructions ?Recorded ?Confirmed ascorbic acid (vitamin C) 1,000 mg 1,000 mg PO DAILY Supplement 08/12/20 04/18/24 tablet calcium 650 mg-vitamin D3 12.5 1 each PO DAILY Supplement 08/12/20 04/18/24 mcg-vitamin K 40 mcg chewable tablet hwyocugpiizl-lzqr-qiuli acid 200 1 each PO DAILY Supplement 08/12/20 04/18/24 mcg-lutein 137.5 mcg chewable tablet omega 2-hjf-uoe-fish oil 500 mg 1 each PO DAILY Supplement 08/12/20 04/18/24 (200mg-300mg)-1,000 mg capsule omeprazole 10 mg capsule,delayed 10 mg PO DAILY Reflux/Acid reflux 08/12/20 04/18/24 release psyllium husk 3.4 gram/5.4 gram 1 tbsp PO DAILY BOWELS 08/12/20 04/18/24 oral powder fexofenadine 180 mg tablet 180 mg PO DAILY 03/21/24 04/18/24 Previous Rx's ?Medication ?Instructions ?Recorded azithromycin 250 mg tablet See Rx Instructions PO .COMPLEX 5 04/07/24 (Zithromax Z-Hermes) days #6 tabs fluconazole 150 mg tablet 150 mg PO Q3D 2 doses #2 tabs 04/07/24 methylprednisolone 4 mg tablets in See Rx Instructions .Route 04/07/24 a dose pack (Medrol (Hermes)) .COMPLEX 6 days #21 tabs albuterol sulfate 90 mcg/actuation 2 puff inhalation Q6H PRN 08/18/24 aerosol inhaler (Ventolin HFA) shortness of breath or wheezing #6.7 grams amoxicillin 875 mg-potassium 1 tab PO Q12H #20 tabs 08/18/24 clavulanate 125 mg tablet benzonatate 100 mg capsule 100 mg PO TIDP PRN Cough #30 caps 08/18/24 methylprednisolone 4 mg tablets in 4 mg PO DIRECTED 6 days #21 tabs 08/18/24 a dose pack doxycycline hyclate 100 mg capsule 100 mg PO BID #20 caps 09/02/24 fluticasone propionate 50 2 spray intranasal DAILY #16 grams 09/02/24 mcg/actuation nasal spray,suspension (Flonase Allergy Relief) guaifenesin 1,200 mg tablet, 1,200 mg PO Q12H PRN congestion 09/02/24 extended release 12 hr (Mucinex) #20 tabs Allergies Allergy/AdvReac Type Severity Reaction Status Date / Time levofloxacin Allergy Unknown Verified 04/18/24 14:17 Quinolones Allergy Unknown Verified 04/18/24 14:17 Worker's Comp Is this a Worker's Comp case?: No [facility] Disclaimer: The information contained in this section may have been updated after the patient was seen, as this information can be updated by other users. Medical History Thyroid disease Urinary tract infection Migraine Asthma Hyperlipidemia Surgical History History of tympanostomy tube placement History of sinus surgery Social History Smoking Status: Former smoker second hand exposure: No alcohol intake: current alcohol intake frequency: holidays/special occasions only substance use type: denies use current occupational status: employed Travel in the last 8 weeks: None household members: spouse and family housing: house current occupation: [employer] current occupational exposures/hazards: No caffeine: Yes Have you lived/traveled outside [place] in past 30 days?: No Contact w/someone who lives/traveled outside US past 30 days?: No Exposure to someone with infectious disease in past 14 days?: No Do you have a fever (greater than 100.4 F or 38 C)?: No Have you tested positive for COVID-19: No Exposed to someone with COVID-19 in past 14 days?: No Do you have a sore throat?: Yes Do you have a cough?: Yes Do you have any weakness?: No Do you have any diarrhea?: No Are you experiencing any unusual bleeding?: No Do you have any muscle aches/pain?: No Do you have any abdominal pain?: No Are you experiencing loss of taste or smell?: No ROS Obtained: Yes All systems reviewed & no additional complaints except as documented and Yes Systems reviewed as appropriate & no additional complaints except as documented Constitutional Constitutional: Reports system reviewed and no additional complaints, except as documented and Reports as per HPI Eyes Eyes: Reports system reviewed and no additional complaints, except as documented and Reports as per HPI ENT Ears, Nose, Mouth, and Throat: Reports system reviewed and no additional complaints, except as documented, Reports as per HPI, Reports otalgia, Reports sinus pain, Reports sinus pressure and Reports sore throat Cardiovascular Cardiovascular: Reports system reviewed and no additional complaints, except as documented and Reports as per HPI Respiratory Respiratory: Reports system reviewed and no additional complaints, except as documented, Reports as per HPI, Reports shortness of breath (on and off hx of asthma), Reports chest congestion and Reports cough Physical Exam General General appearance: alert and in no apparent distress ENT ENT exam: Present mucous membranes moist Expanded ENT Exam Nose exam: Present sinus tenderness Throat exam: Present other (Pharyngeal erythema noted with pND) Respiratory Respiratory exam: Present normal lung sounds bilaterally; Absent respiratory distress or wheezes Cardiovascular Cardiovascular exam: Present regular rate, normal rhythm and normal heart sounds Abdominal Exam Abdominal exam: Present soft and normal bowel sounds; Absent distention or tenderness Neurological Exam Neurological exam: Present alert, oriented X3 and normal gait Medical Decision Making Medical Records Screening: Per USPSTF and CDC recommendations, given the prevalence of disease in our region, it is our hospital?s policy to screen for HIV and viral Hepatitis for all patients aged 18 and over and those with ongoing risk factors. Narciso Inquiry Pt receiving controlled substance: No Narciso was queried for this patient: No Vital Signs: 09/02/24 11:55 Temperature 98.2 F Temperature Source Oral Pulse Rate [Left Brachial] 85 Respiratory Rate 19 Blood Pressure [Left Arm] 149/99 H Blood Pressure Mean [Left Arm] 115 Blood Pressure Source [Left Arm] Automatic Cuff Blood Pressure Position [Left Arm] Sitting 02 Sat by Pulse Oximetry 95 Oxygen Delivery Method Room Air
[2024-09-02 12:44] VITALS: BP 149/99; PULSE 85; RESP 19; TEMP 36.8; O2SAT 95
== END 2024-09-02 12:54 | disposition home or self-care (01) ==
PROVIDERS: Emergency Provider Nurse Practitioner; PCP Internal Medicine Adolescent Medicine
DX: J32.9 Chronic sinusitis, unspecified (principal); J40 Bronchitis, not specified as acute or chronic; R06.02 Shortness of breath; H92.03 Otalgia, bilateral; R09.81 Nasal congestion; R05.9 Cough, unspecified
CPT/HCPCS: 99212; G0381

== ENCOUNTER 2025-02-20 07:52 | Day surgery (SDC) | payer BC, SELFPAY ==
[2025-02-19 10:42] VITALS: BMI 42.0
[2025-02-20 09:10] VITALS: BP 128/76; PULSE 74; RESP 16; O2SAT 95
[2025-02-20] MEDS: LACTATED RINGERS 1000ML 1,000 ML 50 ML IV (09:10)
--- NOTE | 2025-02-20 09:24 | P.PNANES_ITS ---
[facility] Disclaimer: The information contained in this section may have been updated after the patient was seen, as this information can be updated by other users. Medical History Bigeminy Thyroid disease Urinary tract infection Migraine Asthma Hyperlipidemia Surgical History History of tympanostomy tube placement History of sinus surgery Family History Other Family history of atrial fibrillation Family history of breast cancer Family history of hypertension Family history of malignant neoplasm of endometrium Social History Smoking Status: Former smoker second hand exposure: No alcohol intake: current alcohol intake frequency: holidays/special occasions only substance use type: denies use current occupational status: employed Travel in the last 8 weeks?: None household members: spouse and family housing: house current occupation: [employer] current occupational exposures/hazards: No caffeine: Yes Have you lived/traveled outside US in past 30 days?: No Contact w/someone who lives/traveled outside US past 30 days?: No Exposure to someone with infectious disease in past 14 days?: No Do you have a fever (greater than 100.4 F or 38 C)?: No Have you tested positive for COVID-19?: No Exposed to someone with COVID-19 in past 14 days?: No Do you have a sore throat?: No Do you have a cough?: No Do you have any weakness?: No Are you experiencing any nausea/vomitting?: No Do you have any diarrhea?: No Are you experiencing any unusual bleeding?: No Do you have any muscle aches/pain?: No Do you have any abdominal pain?: No Are you experiencing loss of taste or smell?: No [facility] [place] Anesthesia Checklist Patient Identification Patient Identification: Verbal (Name & ) Structural Data Admitted From: Home Planned Operative Procedure/s: colonoscopy Consent for Planned Operative Procedure(s) Verified: Yes NPO Status Verified Time NPO: 00:00 Additional verifications Anesthesia Reactions: No Airway Assessment Mallampati Score:: Class II C-Spine Mobility Assessed: Yes TMJ Mobility Assessed: Yes Dentition: Good Dentition Neurological Assessment Level of Consciousness: Awake, Alert and Appropriate Anesthesia Plan Anesthesia Risk discussed: Yes Anesthesia Plan: Verified ASA Class: II Anesthesia Type: MAC
--- NOTE | 2025-02-20 09:42 | EXP.HP ---
History of Present Illness *Admission Date: 02/20/25 *History of present illness: Mrs. You is a 64-year-old female who is here for GI consultation. The patient has had longstanding IBS with constipation. She was seen by me previously for colonoscopies. After her last colonoscopy in August 2020, she did begin Metamucil and IBgard which have helped. However, she still has hard stools with straining and pressure in the rectum. She does not feel like she fully evacuates. She has a lot of gassiness and some bloating. She does get some abdominal discomfort. She also has noted passing blood with her bowel movements on the tissue and sometimes in the toilet bowl. This is new. Her maternal grandmother had colon cancer in her 70s and her paternal uncle had colon cancer in his 60s. She had a colonoscopy with me in August 2015 and had a single polyp (tubular adenoma) removed. Her last colonoscopy in August 2020 revealed a single hyperplastic polyp that was removed. At that time she did have grade 1 internal hemorrhoids. I did recommend 5-year surveillance interval. She reports no excruciating pain or anal rectal pain when she defecates. She is interested in a natural approach to her treatment. She states all foods give her gas. [facility] Disclaimer: The information contained in this section may have been updated after the patient was seen, as this information can be updated by other users. Medical History (Updated 02/20/25 @ 09:44 by Francisco Gomez II, MD) Bigeminy Thyroid disease Urinary tract infection Migraine Asthma Hyperlipidemia Surgical History History of tympanostomy tube placement History of sinus surgery Family History Other Family history of atrial fibrillation Family history of breast cancer Family history of hypertension Family history of malignant neoplasm of endometrium Social History Smoking Status: Former smoker second hand exposure: No alcohol intake: current alcohol intake frequency: holidays/special occasions only substance use type: denies use current occupational status: employed Travel in the last 8 weeks?: None household members: spouse and family housing: house current occupation: [employer] current occupational exposures/hazards: No caffeine: Yes Have you lived/traveled outside US in past 30 days?: No Contact w/someone who lives/traveled outside US past 30 days?: No Exposure to someone with infectious disease in past 14 days?: No Do you have a fever (greater than 100.4 F or 38 C)?: No Have you tested positive for COVID-19?: No Exposed to someone with COVID-19 in past 14 days?: No Do you have a sore throat?: No Do you have a cough?: No Do you have any weakness?: No Are you experiencing any nausea/vomitting?: No Do you have any diarrhea?: No Are you experiencing any unusual bleeding?: No Do you have any muscle aches/pain?: No Do you have any abdominal pain?: No Are you experiencing loss of taste or smell?: No Other Medical History Have you received the Flu Vaccine for this season: Yes Have you received the Pneumonia Vaccine: No Review of Systems Review of Systems Review of systems (narrative): Negative *Cardiovascular Comments: Negative *Gastrointestinal Comments: Negative *Genitourinary Comments: Negative *Musculoskeletal Comments: Negative *Neurologic Comments: Negative Meds Home Medications and Allergies Home Medications ?Medication ?Instructions ?Recorded ?Confirmed ?Type omega 6-brh-lcw-fish oil 500 mg 1 each PO DAILY Supplement 08/12/20 02/20/25 History (200mg-300mg)-1,000 mg capsule omeprazole 10 mg capsule,delayed 10 mg PO DAILY Reflux/Acid reflux 08/12/20 02/20/25 History release psyllium husk 3.4 gram/5.4 gram 1 tbsp PO DAILY BOWELS 08/12/20 02/20/25 History oral powder (Metamucil) fluticasone propionate 50 2 spray intranasal DAILY #16 grams 09/02/24 02/20/25 Rx mcg/actuation nasal spray,suspension (Flonase Allergy Relief) albuterol sulfate 90 mcg/actuation 1 inh inhalation Q4-6H PRN Asthma 11/18/24 02/20/25 History breath activated powder inhaler,sensor (Proair Digihaler) peppermint oil 1 cap PO DAILY 11/18/24 02/20/25 History Saccharomyces boulardii 250 mg 250 mg PO DAILY 12/04/24 02/20/25 History capsule (Daily Probiotic (S. boulardii)) coenzyme Q10 75 mg capsule (Ultra 75 mg PO DAILY 12/04/24 02/20/25 History CoQ10) zinc acetate 25 mg (zinc) capsule 25 mg PO DAILY 12/04/24 02/20/25 History (Galzin) sod picosulf 10 mg-magnes 3.5 175 ml PO DAILY Bowel Prep 2 doses 02/06/25 02/20/25 Rx gram-citric 12 gram/175 mL oral #350 mL solution (Clenpiq) levocetirizine 5 mg tablet (Xyzal) 5 mg PO DAILY 02/19/25 02/20/25 History New Prescriptions to Start Prescriptions: Allergies Allergy/AdvReac Type Severity Reaction Status Date / Time levofloxacin AdvReac Mild Confusion Verified 02/20/25 09:08 Quinolones AdvReac Mild Confusion Verified 02/20/25 09:08 Exam Data for Last 24 hours Vital signs and Labs for Last 24 Hours: Pulse Resp BP Pulse Ox O2 Del Method 74 16 128/76 95 Room Air 02/20/25 09:10 02/20/25 09:10 02/20/25 09:10 02/20/25 09:10 02/20/25 09:10 I & O for Last 24 hours: Intake & Output 02/17/25 02/18/25 02/19/25 02/20/25 23:59 23:59 23:59 23:59 Weight 245 lb *Routine HEENT Exam Head: Present normocephalic Eye: Present EOMI and PERRL ENT: Present mucous membranes moist *Routine Neck Exam Neck: Present supple *Routine Respiratory Exam Respiratory: Present CTA bilaterally *Routine Cardiovascular Exam Cardiovascular: Present RRR *Routine Abdominal Exam Abdominal: Present soft and normoactive bowel sounds; Absent tenderness *Routine Rectal Exam Rectal:: deferred *Routine Genitalia Exam Genitalia:: deferred *Routine Extremities Exam Extremities: Absent cyanosis, clubbing or edema *Routine Skin Exam Skin: Present warm; Absent rash *Routine Neurological Exam Neurological: Present alert and oriented X3 Assessment and Plan *Assessment and plan (1) Bright red rectal bleeding: Status: Acute Category: Medical Code(s): K62.5 - Hemorrhage of anus and rectum (2) Bloating: Status: Acute Category: Medical Code(s): R14.0 - Abdominal distension (gaseous) (3) Gassiness: Status: Acute Category: Medical Code(s): R14.0 - Abdominal distension (gaseous) (4) Family history of colon cancer: Status: Acute Category: Medical Code(s): Z80.0 - Family history of malignant neoplasm of digestive organs (5) Personal history of adenomatous and serrated colon polyps: Status: Acute Category: Medical Code(s): Z86.0101 - Personal history of adenomatous and serrated colon polyps Plan A/P: 1. Bright red rectal bleeding and family history and personal history of adenomatous colon polyps is the preprocedural diagnosis. The patient will be anesthetized/sedated using MAC sedation. The patient has been seen and examined. Cardiac and lung assessment prior to the examination is stable. Proceed with planned diagnostic colonoscopy.
--- NOTE | 2025-02-20 09:52 | P.PCN_ITS ---
[facility] Procedure Note Date: 02/20/25 Time: 10:11 Procedure Note:: Colonoscopy Procedure Report: Colonoscopy with cold biopsies and monopolar ablation/coagulation of internal hemorrhoids Endoscopist: Francisco Gomez II, MD Referring physician: Suresh Simmons M.D. Date of Procedure: February 20, 2025 Equipment: Olympus 190 variable stiffness pediatric colonoscope Sedation: MAC sedation Indication: Mrs. You is a 64-year-old female who is here for diagnostic colonoscopy secondary to bright red rectal bleeding which is new and primarily spotting on the tissue. The patient has had longstanding IBS with constipation. She was seen by me previously for colonoscopies. After her last colonoscopy in August 2020, she did begin Metamucil and IBgard which have helped. However, she still has hard stools with straining and pressure in the rectum. She does not feel like she fully evacuates. She has a lot of gassiness and some bloating. She does get some abdominal discomfort. She also has noted passing blood with her bowel movements on the tissue and infrequently in the toilet bowl. This is new. Her maternal grandmother had colon cancer in her 70s and her paternal uncle had colon cancer in his 60s. She had a colonoscopy with me in August 2015 and had a single polyp (tubular adenoma) removed. Her last colonoscopy in August 2020 revealed a single hyperplastic polyp that was removed. At that time she did have grade 1 internal hemorrhoids. I did recommend 5-year surveillance interval. She reports no excruciating pain or anal rectal pain when she defecates. She is interested in a natural approach to her treatment. She states all foods give her gas. Procedure: Prior to the procedure, a history and physical exam was performed, and patient's medications and allergies were reviewed. The risks, benefits and alternatives of the sedation and procedure were discussed with the patient. All questions were answered and informed consent was obtained. The patient was brought to the procedure room. Patient identification and proposed procedure were verified by the physician and the nurse. The patient was placed in a left lateral decubitus position and the scope was passed under direct vision. Throughout the procedure, the patient's blood pressure, pulse, and oxygen saturations were monitored continuously. The colonoscopy was accomplished without difficulty. The patient tolerated the procedure well. Findings: On digital rectal examination there was normal rectal tone. There were no external hemorrhoids. The colonoscope was introduced through the anal canal to the rectum and advanced to the cecum. The ileocecal valve and appendiceal orifice were identified. The scope was advanced a short distance into the ileum which appeared grossly normal. The scope was then withdrawn into the colon. There was a single 2 mm sigmoid polyp removed via cold biopsy. The remaining cecum, ascending, transverse, descending, sigmoid and rectum were grossly normal. There were no mucosal abnormalities identified. Upon retroflexion within the rectum there were grade 2-3 internal hemorrhoids. 3 columns of hemorrhoids were ablated/coagulated using monopolar ablation to destruction. The preparation was excellent throughout with Barron Preparation Score of 9. The cecal time was 10 minutes. Impression: 1. Diminutive 2 mm sigmoid polyp 2. Grade 2-3 internal hemorrhoids status post monopolar ablation/coagulation Plan: I would encourage continued psyllium fiber on a long-term daily maintenance basis. We have discussed low FODMAP diet. I would consider adding a broad digestive enzyme. I will discuss the findings with the patient and family.
[2025-02-20 10:19] VITALS: BP 139/62; RESP 18; TEMP 36.2; O2SAT 97
[2025-02-20 10:29] VITALS: BP 136/65; RESP 16; O2SAT 98
[2025-02-20 10:39] VITALS: BP 156/85; RESP 18; O2SAT 97
[2025-02-20 10:49] VITALS: BP 148/76; RESP 18; O2SAT 98
[2025-02-20 10:53] VITALS: BP 140/70; RESP 18; TEMP 36.2; O2SAT 98
== END 2025-02-20 10:53 | disposition home or self-care (01) ==
PROVIDERS: PCP Internal Medicine Adolescent Medicine; Visit Provider Internal Medicine Gastroenterology
PROC: 0DJD8ZZ Inspection of Lower Intestinal Tract, Via Natural or Artificial Opening Endoscopic (ICD-10-PCS; CPT 45378; principal; 2025-02-20 09:30)
DX: K63.5 Polyp of colon (principal); K64.2 Third degree hemorrhoids; K58.1 Irritable bowel syndrome with constipation; J45.909 Unspecified asthma, uncomplicated; E78.5 Hyperlipidemia, unspecified; Z87.891 Personal history of nicotine dependence; Z79.899 Other long term (current) drug therapy; Z80.0 Family history of malignant neoplasm of digestive organs; Z86.0102 Personal history of hyperplastic colon polyps; Z86.0101 Personal history of adenomatous and serrated colon polyps; Z88.8 Allergy status to other drugs, medicaments and biological substances
CPT/HCPCS: 45380; 46930; J2003; J2704; J7120

== ENCOUNTER 2025-06-02 09:30 | Outpatient (CLI) | payer BC, SELFPAY ==
[2025-06-02 15:18] LABS: Coronavirus 19, PCR Not Detected (NotDetected); Influenza A, PCR Not Detected (NotDetected); Influenza B, PCR Not Detected (NotDetected)
--- OUTSIDE RECORDS SUMMARY | 2025-06-03 10:45 | XMS_ITS | Clinical Summary ---
Author Organization [facility] Address [address] [id number] Care Team Providers Care Blood Donor Recruiter Name Role Phone Dereck Short MD Primary Care Provider Unavaila ble Allergies Active Allergy Reactions Criticality Noted Date Comments Levofloxacin Unknown - Patient st ates they do not know rxn details Low 03/09/2016 Medications fluorometholone (FML) 0.1 % ophthalmic suspension Administer 1 drop into both eyes 2 (two) times a day. Active fexofenadine (Jacqui) 60 MG tablet Take 60 mg by mouth 1 (one) time each day. Active triamcinolone (Nasacort) 55 MCG/ACT nasal inhaler Administer 2 sprays into each nostril 1 (one) time each day. Active omeprazole (PriLOSEC) [address] capsule Take 10 mg by mouth 1 (one) time each day. Do not crush or chew. 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 History of blepharoplasty 02/22/2021 Family History Medical History Relation Name Comments Cancer Father's Brother Cancer Maternal Grandfather Cancer Mother Diabetes Mother Hypertension Mother Relation Name Status Comments Father's Brother Maternal Grandfather Mother Social History Tobacco Use Types Packs/Day Years Used Date Smoking Tobacco: Never Comments Unknown Sex and Gender Information Value Date Recorded Sex Assigned at Not on file Legal Sex Female 6:00 PM EDT Gender Identity Not on file Sexual Orientation Not on file Plan of Treatment Health Maintenance Due Date Last Done Comments [facility]-Depression Screening 1961 [facility]-Infant/Child/Adol SDOH Screenings 1961 [facility]- SDOH Screenings 1979 [facility]-Adult SDOH Screenings 1979 [facility]-Pap Smear 1982 [facility]-Cervical Cancer Screening 1991 [facility]-HPV/Cotest 1991 CT Colonography 2006 Colonoscopy 2006 FIT-DNA 2006 FIT 2006 FOBT 2006 Sigmoidoscopy 2006 [facility]-Colorectal Cancer Screening 2006 [facility]-Pneumococcal Vaccine: 50 + Years (1 of 1 - PCV) 2011 [facility]-Zoster Vaccines (1 of 2) 2011 [facility]-FPDNC-47 Vaccine (1 - season) 2025 [facility]-Influenza Vaccine (#1) 05/05/202506/29, 06/22/2020, 07/03/2019 [facility]-DTaP,Tdap,and Td Vaccine s (2 - Td or Tdap) 09/22/2030 09/22/2020 [facility]-RSV Vaccine: 60+ Years o r (1 - 1-dose 75+ series) 2036 [facility]-Hepatitis A Vaccines Aged Out 019, 07/04/2018 No longer eligible based on patient's age to complete this topic HPV Vaccines Aged Out No longer eligi ble based on patient's age to complete this topic [facility]-HIB Vaccines Aged Out No longer e ligible based on patient's age to complete this topic [facility]-IPV Vaccines Aged Out No longer e ligible based on patient's age to complete this topic [facility]-Rotavirus Vaccines Aged Out No lo nger eligible based on patient's age to complete this topic Insurance [employer] Care Teams Blood Donor Recruiter Relationship Specialty Start Date End Date Dereck Short MD PCP - General Family Medicine 02/22/21
--- OUTSIDE RECORDS SUMMARY | 2025-06-03 10:45 | XMS_ITS | Clinical Summary ---
Author Organization [facility] Address [address] [place] [address] Care Team Providers Care Junior Estimator Name Role Phone Suresh Simomns MD Primary Care Provider [phone] Allergies Active Allergy Reactions Criticality Noted Date Comments Levofloxacin Mental Status Change,Paresthesia High 0 03/09/2016 Medications Zinc 15 MG capsule Take 15 mg by mouth Daily. Active Probiotic Product (PROBIOTIC-10 PO) Take by mouth. Active omeprazole (prilOSEC) 10 MG capsule Take 1 capsule by mouth Daily. 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 02/22/2021 BMI 40.0-44.9, adult 01/15/2018 Edema 04/19/2016 Hyperthyroidism 03/09/2016 RAJAN on CPAP 03/09/2016 Resolved Problems Problem Noted Date Diagnosed Date Resolved Date Abdominal bloating 07/04/2017 Palpitations 03/09/2016 03/02/2021 Immunizations Immunization Administration Dates Next Due Flu Vaccine Split Quad 07/03/2019 Hepatitis A 01/11/2019,07/04/2018 Hepatitis B Adult/Adolescent IM 01/29/2008 Tdap 09/22/2020 Family History Medical History Relation Name Comments Breast cancer Mother Endometrial cancer Mother Hypertension Mother Relation Name Status Comments Father Alive Mother Alive Social History Tobacco Use Types Packs/Day Years Used Date Smoking Tobacco: Former Smokeless Tobacco: Never Tobacco Cessation:Counseling Given: Not Answered Alcohol Use Standard Drinks/Week Comments Yes 2 (1 standard drink = 0.6 oz pur e alcohol) occasional Abuse Screen Answer Date Recorded Unsafe at Home or Work/School Not on file Feels Threatened by Someone? Not on file 05/2023 Does Anyone Keep You from Co ntacting Others or Doint Things Outside the Home? Not on file 06/12/2023 Physical Sign of Abuse Present Not on file 1 Housing Stability Answer Date Recorded Current Living Arrangements Not on file 05/2023 Potentially Unsafe Housing Conditions Not on delia e 06/12/2023 Family and Community Support Answer Richi e Recorded Help with Day-to-Day Activities Not on file 06/12/2023 Lonely or Isolated Not on file 06/12/2023 Employment Answer Date Recorded Do you want help finding or keeping work or a north b? Not on file 06/12/2023 Disabilities Answer Date Recorded Concentrating, Remembering, or Making Decisions Difficulty Not on file 06/12/2023 Doing Errands Independently Difficulty Not on fi le 06/12/2023 Education Answer Date Recorded Help with school or training? 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 Not on file Not on file Not on file Last Filed Vital Signs Vital Sign Reading Time Taken Comments Blood Pressure 142/88 02/07/2024 9:30 AM EDT Pulse 68 03/15/2021 2:10 PM EDT Temperature 36.6 C (97.9 F) 03/15/2021 1:48 PM EDT Respiratory Rate 16 03/15/2021 2:10 PM EDT Oxygen Saturation 96% 03/15/2021 2:10 PM EDT Inhaled Oxygen Concentration - - Weight 108 kg (237 lb 6.4 oz) 02/07/2024 9:30 AM EDT Height 162.6 cm (5' 4 ) 02/07/2024 9:30 AM EDT Body Mass Index 40.75 02/07/2024 9:30 AM EDT Plan of Treatment Health Maintenance Due Date Last Done Comments Annual Gynecologic Pelvic an d Breast Exam 1960 Pneumococcal Vaccine 50+ (1 of 2 - PCV) 1980 COLOGUARD 2006 COLON CANCER SCREENING 5 YEA R SIGMOID[address]COPY [address] COLONOGRAPHY 2006 FECAL OCCULT BLOOD TEST 2006 FIT Testing (1 year) 2006 ANNUAL PHYSICAL 03/09/2016 MAMMOGRAM 11/29/2020 11/29/2018, 09/05, 08/12/2015 INFLUENZA VACCINE 04/04/2025 07/12/2022, , 06/22/2020, Additional history exists COLONOSCOPY 08/17/2025 08/17/2020, 08/05, 05/11/2015 COLORECTAL CANCER SCREENING 08/17/2025 TDAP/TD VACCINES (2 - Td or Tdap) 09/22/2030 021 HEPATITIS C SCREENING Completed 07/10/2019, 019 ZOSTER VACCINE Completed 12/19/2023, 03/01/2023 Procedures Procedure Name Priority Date/Time Associated Diagnosis Comments SCANNED - COLONOSCOPY 08/17/2020 HEPATITIS C ANTIBODY Routine 07/10/2019 9:59 AM EST Encounter for hepatitis C screening test for low risk patient SCANNED - MAMMO 11/29/2018 from Last 3 Months or Most Recently Relevant to Health Maintenance Results * SCANNED - COLONOSCOPY (08/17/2020) us Dereck Short MD CHART REVIEW TABS Final Resu lt * Hepatitis C Antibody (07/10/2019 9:59 AM EST) Hep C Virus Ab <0.1 0.0 - 0.9 s/co ratio [facility] Comment: Negative: < 0.8 Indeterminate: 0.8 - 0.9 Positive: > 0.9 The CDC recommends that a positive HCV antibody result be followed up with a HCV Nucleic Acid Amplification test ([id number]). Blood 07/10/2019 9:59 AM EST 07/10/2019 Narrative [facility] ([facility]) - 07/11/2019 7:08 AM EST Performed at: 02 - [facility] [address] [place], [place] [id number] Slitter Service And Setter: Doc Jones PhD, Phone: [phone] Patient Fasting: Y Dereck Short MD LAB BLOOD ORDERABLES Final Resu lt [facility] ([facility]) [address] [place] [address], [facility] [address] [place] [address], * SCANNED - MAMMO (11/29/2018) Anatomical Region Laterality Modality Other Dereck Short MD CHART REVIEW TABS Final Resu lt from Last 3 Months or Most Recently Relevant to Health Maintenance Insurance Care Teams Junior Estimator Relationship Specialty Start Date End Date Suresh Simmons MD [address] [place] [address] PCP - General Adolescent Medicine 01/23/24
== END 2025-06-02 23:59 ==
LOC: LAB.DROPOF 06-03 10:40
PROVIDERS: PCP Student in an Organized Health Care Education/Training Program; Visit Provider Student in an Organized Health Care Education/Training Program
DX: J32.9 Chronic sinusitis, unspecified (principal)
CPT/HCPCS: 87636